=== PATIENT | female | born 1960 | race Caucasian/White ===

== ENCOUNTER 2020-03-09 13:41 | Outpatient (REF) | payer OTHER, SELFPAY ==
--- NOTE | 2020-03-09 14:48 | XR_ITS ---
EXAMINATION: XR FOREARM, RIGHT CLINICAL INFORMATION: Right forearm pain. COMPARISON: None TECHNIQUE: AP and lateral views of the right forearm were obtained. FINDINGS: The radius and ulna are intact. The right elbow is unremarkable. Degenerative joint changes are noted in the right wrist. XR/XR forearm RT 2V IMPRESSION: 1. No acute form abnormality. 2. Degenerative joint changes in the right wrist better described in the dedicated right wrist radiographs from today.
--- NOTE | 2020-03-09 14:48 | XR_ITS ---
EXAMINATION: BILATERAL FOOT X-RAY CLINICAL INFORMATION: Pain COMPARISON: None TECHNIQUE: 3 views each foot FINDINGS: Right: No fracture or dislocation is seen. There is mild hallux valgus deformity at the first MTP joint. There is joint space narrowing, osteophyte formation and subchondral cyst formation and erosion at the first MTP joint. There there are also small cysts or erosive changes at the third and fifth tarsal head at the MTP joints. There may be cystic or erosive changes along the lateral aspect of the DIP and PIP joints of the fifth toe. Joint spaces are otherwise normal. There is soft tissue swelling adjacent to the first MTP joint. Left: No fracture or dislocation is seen. There is mild hallux valgus deformity at the first MTP joint. There is degenerative change with joint space narrowing and osteophyte formation. There is also cystic or erosive change of the first metatarsal head. There are is cystic or erosive changes at the fifth MTP joint and question IP joints of the fifth toe. There is soft tissue swelling adjacent to the MTP joint. There is a plantar calcaneal spur. XR/XR foot LT 2V IMPRESSION: Right: Erosive arthritis at the first MTP joint, third and fifth MTP joints and question IP joints of the fifth toe. Hallux valgus deformity and mild osteoarthritis of the first MTP joint. Left: Erosive arthritis at the first and fifth MTP joints and question fifth IP joints. Hallux valgus deformity and mild osteoarthritis at the first MTP joint. Plantar calcaneal spur. EXAMINATION: Bilateral hand x-ray CLINICAL INFORMATION: Pain COMPARISON: None. TECHNIQUE: 3 views each hand FINDINGS: Right: No fracture or dislocation is seen. There is mild proliferative arthritis at the IP joints and first [facility] with joint space narrowing and osteophyte formation. There is significant cystic change at the radiocarpal joint involving the scaphoid bone and distal radius. There is joint space narrowing of the proximal and distal carpal rows. There is question of some collapse of the proximal carpal row. There is a periarticular osteopenia. There is soft tissue swelling particularly at the wrist and over the metacarpal heads. There is question of erosive change of the dorsal aspect of the second or third metacarpal head seen on the lateral view. Left: There is an old healed fracture of the left radial shaft. No acute fracture or dislocation is seen. There is arthritis at the IP joints with joint space narrowing and osteophyte formation. There is question of cystic or erosive change at the PIP joint of the fifth finger and DIP joint of the second finger. There is significant periarticular soft tissue swelling adjacent to the PIP joint of the second finger. There is a proliferative arthritis at the first [facility] joint with joint space narrowing and osteophyte formation. There are a small cysts in the scaphoid bone and ulnar styloid and triquetrum. There is soft tissue swelling adjacent to the ulnar styloid. IMPRESSION: Right: Proliferative arthritis at the IP joints and first [facility] joint. Marked cystic change at the radiocarpal joint and marked joint space narrowing of the proximal and distal carpal rows with question clinical some collapse of the proximal carpal row suggestive of erosive arthritis. Left: Arthritis at the IP joints. There is question of erosive arthritis at the PIP joint of the fifth finger and DIP joint of the second finger. There is marked periarticular soft tissue swelling adjacent to the PIP joint of the second finger. Mild proliferative arthritis at the first [facility] joint. Small cysts in the carpal bones and soft tissue swelling adjacent to the ulnar styloid. Old left radial shaft fracture.
--- NOTE | 2020-03-09 14:48 | XR_ITS ---
EXAMINATION: BILATERAL FOOT X-RAY CLINICAL INFORMATION: Pain COMPARISON: None TECHNIQUE: 3 views each foot FINDINGS: Right: No fracture or dislocation is seen. There is mild hallux valgus deformity at the first MTP joint. There is joint space narrowing, osteophyte formation and subchondral cyst formation and erosion at the first MTP joint. There there are also small cysts or erosive changes at the third and fifth tarsal head at the MTP joints. There may be cystic or erosive changes along the lateral aspect of the DIP and PIP joints of the fifth toe. Joint spaces are otherwise normal. There is soft tissue swelling adjacent to the first MTP joint. Left: No fracture or dislocation is seen. There is mild hallux valgus deformity at the first MTP joint. There is degenerative change with joint space narrowing and osteophyte formation. There is also cystic or erosive change of the first metatarsal head. There are is cystic or erosive changes at the fifth MTP joint and question IP joints of the fifth toe. There is soft tissue swelling adjacent to the MTP joint. There is a plantar calcaneal spur. XR/XR hand wrist RT IMPRESSION: Right: Erosive arthritis at the first MTP joint, third and fifth MTP joints and question IP joints of the fifth toe. Hallux valgus deformity and mild osteoarthritis of the first MTP joint. Left: Erosive arthritis at the first and fifth MTP joints and question fifth IP joints. Hallux valgus deformity and mild osteoarthritis at the first MTP joint. Plantar calcaneal spur. EXAMINATION: Bilateral hand x-ray CLINICAL INFORMATION: Pain COMPARISON: None. TECHNIQUE: 3 views each hand FINDINGS: Right: No fracture or dislocation is seen. There is mild proliferative arthritis at the IP joints and first [facility] with joint space narrowing and osteophyte formation. There is significant cystic change at the radiocarpal joint involving the scaphoid bone and distal radius. There is joint space narrowing of the proximal and distal carpal rows. There is question of some collapse of the proximal carpal row. There is a periarticular osteopenia. There is soft tissue swelling particularly at the wrist and over the metacarpal heads. There is question of erosive change of the dorsal aspect of the second or third metacarpal head seen on the lateral view. Left: There is an old healed fracture of the left radial shaft. No acute fracture or dislocation is seen. There is arthritis at the IP joints with joint space narrowing and osteophyte formation. There is question of cystic or erosive change at the PIP joint of the fifth finger and DIP joint of the second finger. There is significant periarticular soft tissue swelling adjacent to the PIP joint of the second finger. There is a proliferative arthritis at the first [facility] joint with joint space narrowing and osteophyte formation. There are a small cysts in the scaphoid bone and ulnar styloid and triquetrum. There is soft tissue swelling adjacent to the ulnar styloid. IMPRESSION: Right: Proliferative arthritis at the IP joints and first [facility] joint. Marked cystic change at the radiocarpal joint and marked joint space narrowing of the proximal and distal carpal rows with question clinical some collapse of the proximal carpal row suggestive of erosive arthritis. Left: Arthritis at the IP joints. There is question of erosive arthritis at the PIP joint of the fifth finger and DIP joint of the second finger. There is marked periarticular soft tissue swelling adjacent to the PIP joint of the second finger. Mild proliferative arthritis at the first [facility] joint. Small cysts in the carpal bones and soft tissue swelling adjacent to the ulnar styloid. Old left radial shaft fracture.
--- NOTE | 2020-03-09 14:48 | XR_ITS ---
EXAMINATION: BILATERAL FOOT X-RAY CLINICAL INFORMATION: Pain COMPARISON: None TECHNIQUE: 3 views each foot FINDINGS: Right: No fracture or dislocation is seen. There is mild hallux valgus deformity at the first MTP joint. There is joint space narrowing, osteophyte formation and subchondral cyst formation and erosion at the first MTP joint. There there are also small cysts or erosive changes at the third and fifth tarsal head at the MTP joints. There may be cystic or erosive changes along the lateral aspect of the DIP and PIP joints of the fifth toe. Joint spaces are otherwise normal. There is soft tissue swelling adjacent to the first MTP joint. Left: No fracture or dislocation is seen. There is mild hallux valgus deformity at the first MTP joint. There is degenerative change with joint space narrowing and osteophyte formation. There is also cystic or erosive change of the first metatarsal head. There are is cystic or erosive changes at the fifth MTP joint and question IP joints of the fifth toe. There is soft tissue swelling adjacent to the MTP joint. There is a plantar calcaneal spur. XR/XR foot RT 2V IMPRESSION: Right: Erosive arthritis at the first MTP joint, third and fifth MTP joints and question IP joints of the fifth toe. Hallux valgus deformity and mild osteoarthritis of the first MTP joint. Left: Erosive arthritis at the first and fifth MTP joints and question fifth IP joints. Hallux valgus deformity and mild osteoarthritis at the first MTP joint. Plantar calcaneal spur. EXAMINATION: Bilateral hand x-ray CLINICAL INFORMATION: Pain COMPARISON: None. TECHNIQUE: 3 views each hand FINDINGS: Right: No fracture or dislocation is seen. There is mild proliferative arthritis at the IP joints and first [facility] with joint space narrowing and osteophyte formation. There is significant cystic change at the radiocarpal joint involving the scaphoid bone and distal radius. There is joint space narrowing of the proximal and distal carpal rows. There is question of some collapse of the proximal carpal row. There is a periarticular osteopenia. There is soft tissue swelling particularly at the wrist and over the metacarpal heads. There is question of erosive change of the dorsal aspect of the second or third metacarpal head seen on the lateral view. Left: There is an old healed fracture of the left radial shaft. No acute fracture or dislocation is seen. There is arthritis at the IP joints with joint space narrowing and osteophyte formation. There is question of cystic or erosive change at the PIP joint of the fifth finger and DIP joint of the second finger. There is significant periarticular soft tissue swelling adjacent to the PIP joint of the second finger. There is a proliferative arthritis at the first [facility] joint with joint space narrowing and osteophyte formation. There are a small cysts in the scaphoid bone and ulnar styloid and triquetrum. There is soft tissue swelling adjacent to the ulnar styloid. IMPRESSION: Right: Proliferative arthritis at the IP joints and first [facility] joint. Marked cystic change at the radiocarpal joint and marked joint space narrowing of the proximal and distal carpal rows with question clinical some collapse of the proximal carpal row suggestive of erosive arthritis. Left: Arthritis at the IP joints. There is question of erosive arthritis at the PIP joint of the fifth finger and DIP joint of the second finger. There is marked periarticular soft tissue swelling adjacent to the PIP joint of the second finger. Mild proliferative arthritis at the first [facility] joint. Small cysts in the carpal bones and soft tissue swelling adjacent to the ulnar styloid. Old left radial shaft fracture.
--- NOTE | 2020-03-09 14:48 | XR_ITS ---
EXAMINATION: BILATERAL FOOT X-RAY CLINICAL INFORMATION: Pain COMPARISON: None TECHNIQUE: 3 views each foot FINDINGS: Right: No fracture or dislocation is seen. There is mild hallux valgus deformity at the first MTP joint. There is joint space narrowing, osteophyte formation and subchondral cyst formation and erosion at the first MTP joint. There there are also small cysts or erosive changes at the third and fifth tarsal head at the MTP joints. There may be cystic or erosive changes along the lateral aspect of the DIP and PIP joints of the fifth toe. Joint spaces are otherwise normal. There is soft tissue swelling adjacent to the first MTP joint. Left: No fracture or dislocation is seen. There is mild hallux valgus deformity at the first MTP joint. There is degenerative change with joint space narrowing and osteophyte formation. There is also cystic or erosive change of the first metatarsal head. There are is cystic or erosive changes at the fifth MTP joint and question IP joints of the fifth toe. There is soft tissue swelling adjacent to the MTP joint. There is a plantar calcaneal spur. XR/XR hand wrist LT IMPRESSION: Right: Erosive arthritis at the first MTP joint, third and fifth MTP joints and question IP joints of the fifth toe. Hallux valgus deformity and mild osteoarthritis of the first MTP joint. Left: Erosive arthritis at the first and fifth MTP joints and question fifth IP joints. Hallux valgus deformity and mild osteoarthritis at the first MTP joint. Plantar calcaneal spur. EXAMINATION: Bilateral hand x-ray CLINICAL INFORMATION: Pain COMPARISON: None. TECHNIQUE: 3 views each hand FINDINGS: Right: No fracture or dislocation is seen. There is mild proliferative arthritis at the IP joints and first [facility] with joint space narrowing and osteophyte formation. There is significant cystic change at the radiocarpal joint involving the scaphoid bone and distal radius. There is joint space narrowing of the proximal and distal carpal rows. There is question of some collapse of the proximal carpal row. There is a periarticular osteopenia. There is soft tissue swelling particularly at the wrist and over the metacarpal heads. There is question of erosive change of the dorsal aspect of the second or third metacarpal head seen on the lateral view. Left: There is an old healed fracture of the left radial shaft. No acute fracture or dislocation is seen. There is arthritis at the IP joints with joint space narrowing and osteophyte formation. There is question of cystic or erosive change at the PIP joint of the fifth finger and DIP joint of the second finger. There is significant periarticular soft tissue swelling adjacent to the PIP joint of the second finger. There is a proliferative arthritis at the first [facility] joint with joint space narrowing and osteophyte formation. There are a small cysts in the scaphoid bone and ulnar styloid and triquetrum. There is soft tissue swelling adjacent to the ulnar styloid. IMPRESSION: Right: Proliferative arthritis at the IP joints and first [facility] joint. Marked cystic change at the radiocarpal joint and marked joint space narrowing of the proximal and distal carpal rows with question clinical some collapse of the proximal carpal row suggestive of erosive arthritis. Left: Arthritis at the IP joints. There is question of erosive arthritis at the PIP joint of the fifth finger and DIP joint of the second finger. There is marked periarticular soft tissue swelling adjacent to the PIP joint of the second finger. Mild proliferative arthritis at the first [facility] joint. Small cysts in the carpal bones and soft tissue swelling adjacent to the ulnar styloid. Old left radial shaft fracture.
[2020-03-09 15:08] LABS: MANUAL DIFF FLAG NO
[2020-03-09 15:11] LABS: Basophils Percent Auto 0.5 % (0-2); Eosinophils Absolute Auto 0.2 X10*3/uL (0.0-0.4); Eosinophils Percent Auto 2.8 % (0-4); Hematocrit 36.9 % (37-47); Hemoglobin 11.9 g/dl (12.0-16.0); Imm Gran Abs Auto 0.03 X10*3/uL (0.00-0.03); Imm Gran Pct Auto 0.4 % (0.0-0.4); Lymphocytes Percent Auto 25.5 % (20-40); Mean Corpuscular HGB Conc 32.2 g/dl (31.0-35.0); Mean Corpuscular Hemoglobin 31.6 pg (27.0-33.0); Mean Corpuscular Volume 97.9 fL (80-98); Mean Platelet Volume 8.9 fL (9.4-12.3); Monocytes Absolute Auto 0.7 X10*3/uL (0.1-1.2); Monocytes Percent Auto 8.8 % (2-11); Neutrophils Absolute Auto 4.9 X10*3/uL (2.0-8.3); Platelet Count 358 X10*3/uL (160-400); Red Blood Count 3.77 X10*6/uL (4.20-5.50); Red Cell Distribution Width 12.2 % (11.0-16.0)
[2020-03-09 15:36] LABS: Alanine Aminotransferase 15 U/L (0-31); Albumin Level 4.2 g/dL (3.5-5.0); Alkaline Phosphatase 115 U/L (39-117); Anion Gap 12 (12-20); Aspartate Amino Transferase 18 U/L (5-31); Bilirubin Total 0.3 mg/dL (0.0-1.0); Blood Urea Nitrogen 22 mg/dL (9-16); C Reactive Protein 2.77 mg/dL (< or = 0.50); Carbon Dioxide 24 mmol/L (22-29); Chloride 103 mmol/L (96-108); Estimated Glomerular Filt Rate > 60; Glucose Random 96 mg/dL (60-115); Potassium 4.2 mmol/l (3.3-5.1); Rheumatoid Factor < 15.0 IU/mL (<15.0); Sodium 135 mmol/L (135-145); Total Protein 7.1 g/dL (6.5-8.0)
[2020-03-09 15:53] LABS: Erythrocyte Sedimentation Rate 14 MM/HR (0-20)
[2020-03-10 05:06] LABS: ~HepC Num1 0.08 S/CO (0.00-0.79); ~Hepatitis C Antibody Nonreactive (Nonreactive)
[2020-03-10 05:14] LABS: HBc Num1 0.05 S/CO (0.00-0.79); HBsAGNum1 0.24 S/CO (0.00-0.99); Hepatitis B Core Antibody Nonreactive (Nonreactive); Hepatitis B Surface Antigen Negative (Negative)
[2020-03-10 05:49] LABS: HBS Num1 11.51 mIU/mL (0-7.99); HBS Num2 11.39 mIU/mL (0-7.99); HBS Num3 11.47 mIU/mL (0-7.99)
[2020-03-10 05:50] LABS: ~Hepatitis B Surface Antibody Grayzone (Nonreactive)
[2020-03-10 12:07] LABS: Antibody to SS-A Antigen 5.2 POS AI (<1.0 NEG); Antibody to SS-B Antigen <1.0 NEG AI (<1.0 NEG)
[2020-03-10 14:31] LABS: Anti Nuclear Antibody Screen NEGATIVE (NEGATIVE)
[2020-03-10 16:01] LABS: Cyclic Citrullinated Peptide 171 UNITS
[2020-03-11 03:39] LABS: Hepatitis A Antibody IgM 0.16 Index (0-0.79); ~Hepatitis A Antibody IgM Nonreactive (Nonreactive)
[2020-03-12 20:02] LABS: TS Negative Control Passed; TS Panel A 0; TS Panel B 0; TS Positive Control Passed; TSpotTB Negative (SeeBelow)
[2020-03-13 10:12] LABS: Vitamin D 25-OH, D2 6 ng/mL; Vitamin D 25-OH, D3 31 ng/mL; Vitamin D 25-OH, Total 37 ng/mL (30-100)
== END 2020-03-09 13:42 | disposition home or self-care (01) ==
LOC: HO.LAB 13:41
PROVIDERS: PCP Internal Medicine; Referring Provider Internal Medicine; Visit Provider Student in an Organized Health Care Education/Training Program
DX: M25.50 Pain in unspecified joint (principal)
CPT/HCPCS: 36415; 73090; 73110; 73130; 73620; 80053; 82306; 85025; 85652; 86038; 86039; 86140; 86200; 86235; 86431; 86481; 86704; 86706; 86709; 86803; 87340

== ENCOUNTER → 2020-04-01 15:29 | Outpatient (BNVA) | payer OTHER, SELFPAY | PROVIDERS: PCP Internal Medicine; Referring Provider Internal Medicine; Visit Provider Student in an Organized Health Care Education/Training Program | DX: Z76.89 Persons encountering health services in other specified circumstances (principal) ==

== ENCOUNTER → 2020-08-03 13:52 | Outpatient (BNVA) | payer OTHER, SELFPAY | PROVIDERS: Visit Provider Student in an Organized Health Care Education/Training Program ==

== ENCOUNTER → 2020-10-05 14:57 | Outpatient (BNVA) | payer OTHER, SELFPAY | PROVIDERS: Visit Provider Student in an Organized Health Care Education/Training Program ==

== ENCOUNTER → 2020-12-19 07:55 | Outpatient (BNVA) | payer OTHER, SELFPAY | PROVIDERS: PCP Internal Medicine; Visit Provider Nurse Practitioner Family ==

== ENCOUNTER → 2021-05-04 11:20 | Outpatient (BNVA) | payer OTHER, SELFPAY | PROVIDERS: PCP Internal Medicine; Visit Provider Nurse Practitioner Family ==

== ENCOUNTER → 2021-08-22 11:24 | Outpatient (BNVA) | payer OTHER, SELFPAY | PROVIDERS: PCP Internal Medicine; Visit Provider Nurse Practitioner Family | DX: Z13.89 Encounter for screening for other disorder (principal) ==

== ENCOUNTER → 2022-07-05 07:29 | Outpatient (BNVA) | payer OTHER, SELFPAY | PROVIDERS: PCP Internal Medicine; Visit Provider Nurse Practitioner Family | DX: Z13.89 Encounter for screening for other disorder (principal) ==

== ENCOUNTER 2022-07-05 08:27 | Outpatient (REF) | payer OTHER, SELFPAY ==
[2022-07-05 10:55] LABS: MANUAL DIFF FLAG NO
[2022-07-05 11:02] LABS: Basophils Percent Auto 0.4 % (0-2); Eosinophils Absolute Auto 0.2 X10*3/uL (0.0-0.4); Eosinophils Percent Auto 2.2 % (0-4); Hematocrit 40.9 % (37.0-47.0); Hemoglobin 13.2 g/dl (12.0-16.0); Imm Gran Abs Auto 0.04 X10*3/uL (0.00-0.03); Imm Gran Pct Auto 0.4 % (0.0-0.4); Lymphocytes Absolute Auto 1.2 X10*3/uL (1.2-4.9); Lymphocytes Percent Auto 12.3 % (20-40); Mean Corpuscular HGB Conc 32.3 g/dl (31.0-35.0); Mean Platelet Volume 9.3 fL (9.4-12.3); Monocytes Absolute Auto 0.9 X10*3/uL (0.1-1.2); Monocytes Percent Auto 9.1 % (2-11); Neutrophils Absolute Auto 7.5 x10*3/uL (2.0-8.3); Neutrophils Percent Auto 75.6 % (45-73); Platelet Count 304 X10*3/uL (160-400); Red Blood Count 4.26 X10*6/uL (4.20-5.50); Red Cell Distribution Width 12.5 % (11.0-16.0); White Blood Count 9.9 X10*3/uL (4.8-10.8)
[2022-07-05 11:27] LABS: Alanine Aminotransferase 14 U/L (0-31); Albumin Level 4.3 g/dL (3.5-5.0); Alkaline Phosphatase 92 U/L (39-117); Anion Gap 16 (12-20); Aspartate Amino Transferase 18 U/L (5-31); Bilirubin Total 0.9 mg/dL (0.0-1.0); Blood Urea Nitrogen 12 mg/dL (9-16); C Reactive Protein 1.71 mg/dL (< or = 0.50); Calcium 9.4 mg/dL (8.4-10.2); Carbon Dioxide 22 mmol/L (22-29); Chloride 104 mmol/L (96-108); Estimated Glomerular Filt Rate > 60; Glucose Random 92 mg/dL (60-115); Sodium 138 mmol/L (135-145)
[2022-07-05 11:45] LABS: Erythrocyte Sedimentation Rate 8 MM/HR (0-20)
== END 2022-07-05 08:28 | disposition home or self-care (01) ==
LOC: HO.10HDL 08:27
PROVIDERS: Visit Provider Nurse Practitioner Family
DX: M05.9 Rheumatoid arthritis with rheumatoid factor, unspecified (principal)
CPT/HCPCS: 36415; 80053; 85025; 85652; 86140

== ENCOUNTER → 2022-08-14 07:33 | Outpatient (BNVA) | payer OTHER, SELFPAY | PROVIDERS: PCP Internal Medicine; Visit Provider Nurse Practitioner Family | DX: M05.9 Rheumatoid arthritis with rheumatoid factor, unspecified (principal) | CPT/HCPCS: 99212 ==

== ENCOUNTER 2022-11-26 14:34 | Outpatient (AMB) | payer OTHER, SELFPAY ==
[2022-11-26 14:39] VITALS: BP 142/88; PULSE 78; TEMP 36.8; O2SAT 98; BMI 22.6
--- NOTE | 2022-11-26 14:39 | A.OFFVIS_ITS ---
Intake Vital Signs 11/26/22 14:39 Height 5 ft Weight 115 lb 15.41 oz BMI 22.6 BP 142/88 H Blood Pressure Location Lt brachial Position Sitting Pulse 78 Pulse Source Pulse Oximeter Temp 98.2 F Temp Source Skin Pulse Oximetry (%) 98 Intake Visit Reasons: rheumatoid arthritis Intake Note: * Pt seen today for RA follow up. * Experienced injection site reaction with Actemra. Resistance Welder Required: No Accompanied by: Self / Same As Patient Allergies tocilizumab [From Actemra] Allergy (Intermediate, Verified 11/26/22 14:40) Rash sarilumab [From Kevzara] Allergy (Verified 11/26/22 14:40) rash HPI HPI Comments History of Present Illness Details The patient caledl us about 2 weeks ago with a reaction to the Actemra injections. She was getting small amounts of redness and swelling at injection site but the most recent 1 caused a swelling that measured 5 x 6 in. It was painful as well. She also developed some itchiness on the scalp in underneath the axilla regions. We told her to stop the Actemra. It has been doing well with her joints as they do not seem to be hurting. Unfortunately she has been on multiple other medications in the past for her RA that either did not help or were associated with side effects. The disease was diagnosed in 2010. She had trials of treatment with methotrexate, hydroxychloroquine, sulfasalazine, Enbrel, Orencia and Humira. Methotrexate seemed to cause nausea. Hydroxychloroquine and the other drugs were not effective. She did get treated with Xeljanz for about 6 months but that seemed to cause headache and nausea so it was stopped. She was then switched to Kevzara for a while that was helpful but gave her unacceptable injection reactions. We tried again the Actemra most recently which also was effective but associated with progressively more severe injection site reactions. She has some prednisone available at home but has not needed itt yet because the last Actemra injection was only 3 weeks ago. [facility] Medical History Atrial tachycardia Hypertension Syncope Surgical History H/O arthroscopic knee surgery H/O dilation and curettage Family History Father Rectal cancer HTN (hypertension) Mother HTN (hypertension) Social History Alcohol intake: current Patient Tobacco Use Status: Never used Tobacco e-Cigarette/Vaping Use: Never Used Review of Systems Const Details: Negative for appetite change, weight change, fever, chills, malaise and fatigue Eyes Details: Negative for vision change, dry eyes,headaches and dizziness ENT Details: Negative for hearing change, tinnitus, oral ulcer, nose bleeds and oral dryness. Card Details: Negative chest pain, edema and syncope Resp Details: Negative for SOB, cough and wheezing GI Details: Negative indigestion/heartburn, nausea, abdominal pain, bowel changes, diarrhea, constipation and bloody stool. Skin/Breast Details: Negative for itching, rash, hives, Raynaud's symptoms, sun sensitivity, and skin cancer Foster/Lymph Details: Negative for excessive bruising or bleeding. Physical Exam Vital Signs: Last Vital Signs Temp 98.2 F 11/26/22 14:39 Pulse 78 11/26/22 14:39 BP 142/88 H 11/26/22 14:39 Pulse Ox 98 11/26/22 14:39 BMI result Body Mass Index 22.6 APPEARANCE: Patient in no acute distress EYES no redness, pupils equal and reactive to light, eyelids normal EXTREMITIES:? No edema, no calf tenderness, normal peripheral pulses. NEURO:? Oriented and alert x3.? No focal weakness.? Gait normal. SKIN:? No inflammatory or neoplastic lesions.? Normal color and turgor. She has a picture on her phone of swelling and redness over the left thigh where she had the injection site reaction. JOINT EXAM:? Cervical Spine: Full range of motion without pain; no tenderness. Thoracic Spine:? No tenderness on palpation. Lumbar Spine:? Alignment normal.? Full range of motion without pain, no tenderness. Hands: LEFT:? Mild bony enlargement without tenderness at the base of the thumb. There is soft tissue swelling without tenderness of the 2nd and 3rd MCP joints. There is no flexor tendon triggering, thenar atrophy or sensory loss. She has minimal nontender bony enlargement at the 2nd through 5th PIP joints. ? RIGHT:? Mild bony enlargement and slight tenderness at the base of the thumb. There is soft tissue swelling without tenderness at the 1st 3 MCP joints. Wrists: LEFT: ? Flexion and extension limited at about 45 degrees where she has mild pain. There is questionable soft tissue thickening at the wrist and mild tenderness.? No erythema or increased warmth.? RIGHT:? Slight discomfort with flexion extension at 60 degrees. There is minimal tenderness but no swelling.No erythema or increased warmth. Elbows: Normal pain-free range of motion without tenderness, swelling, increased warmth or erythema. Shoulders: Full range of motion without pain. No tenderness, weakness, swelling, increased warmth or erythema. Hips: Full range of motion without pain. Hip bursa:? No tenderness. Knees: Normal pain-free range of motion without tenderness, swelling, increased warmth or erythema.? There is no effusion or crepitation Ankles:? Normal pain-free range of motion without tenderness, swelling, incr eased warmth or erythema. Feet: Right: There is 1st MTP bony enlargement and hallux valgus deformity. There is hammertoe deformities of the 2nd and 3rd toes with a dorsal callus on the 2nd toe. The 2nd toe over rides the 3rd toe. There is no tenderness in the other MTP joints. There is some bony prominence up on the dorsum of the foot. This is not tender today. Left: 1st MTP bony enlargement and hallux valgus deformity as on the right. There is early hammertoe deformity at the 2nd toe. Elsewhere there is no tenderness or swelling except for some dorsal bony enlargement in the instep. ? Results Reviewed Results Reviewed: Laboratory Tests 07/05/22 07/05/22 08:30 08:30 WBC 9.9 Hgb 13.2 Creatinine 0.66 AST 18 ALT 14 C-Reactive Protein 1.71 H November 22 labs from [facility] reference lab: Hematocrit 42, hemoglobin 13.1, white count 5.5, ALT 24, AST 21, ESR less than 2, CRP less than 0.3 Assessment & Plan Assessment & Plan (1) Long-term use of immunosuppressant medication: Code(s): Z79.60 - retirement (current) use of unspecified immunomodulators and immunosuppressants (2) Seropositive rheumatoid arthritis: Comment: dx 2010. plaquenil, mtx, Enbrel, sulfasalazine, Humira not effective. Xeljanz 06/2019 through 07/2020 headache and nausea Kevzara ordered but denied by insurance company 07/2020 Orencia 08/2020- 09/2020 symptoms improved at first, then returned-also on prednisone weaned off Actemra 09/2020- 04/2021- tremor and feeling unwell, likely due to other reasons, but Actemra to see response. Kevzara 04/2021-05/2021-injection site reaction Actemra- 06/2021- 08/2021- injection site reaction, redness and warmth at the injection site. Code(s): M05.9 - Rheumatoid arthritis with rheumatoid factor, unspecified Plan Rheumatoid arthritis with again an unacceptable injection site reaction. The control of synovitis was actually pretty good with the Actemra so it is unfortunate that we cannot use it. I did review her records of previous trials with medications. It seems like she does get injection site reactions for relatively frequently so we may try to stay away from that type of modality. I will try to see if we get approval for the use of baricitinib 2 mg daily. She had trouble with the Xeljanz mostly with nausea so maybe the baricitinib is not going to give her that. We will have to pursue this with her insurance company. We will get back to her with the decision on prior authorization. In the meantime she does have the prednisone at home if needed. Review of her record and today's exam took 35 minutes. I gave her some written information on the baricitinib to review. We will aim for follow-up at about 2 months, hopefully by then she will be on the new medication and doing well. Coding Level of Care Code Est Pt Level 4 (62468) Diagnoses Long-term use of immunosuppressant medication Z79.60 Seropositive rheumatoid arthritis M05.9
== END 2022-11-26 16:16 | disposition home or self-care (01) ==
PROVIDERS: PCP Internal Medicine; Visit Provider Internal Medicine Rheumatology
DX: M05.89 Other rheumatoid arthritis with rheumatoid factor of multiple sites (principal); Z79.60 Long term (current) use of unspecified immunomodulators and immunosuppressants
CPT/HCPCS: 99214

== ENCOUNTER → 2022-11-26 14:34 | Outpatient (BNVA) | payer OTHER, SELFPAY | PROVIDERS: Visit Provider Internal Medicine Rheumatology ==

== ENCOUNTER 2023-03-25 08:40 | Outpatient (AMB) | payer OTHER, SELFPAY ==
--- NOTE | 2023-03-25 08:42 | A.OFFVIS_ITS ---
Intake Vital Signs 03/25/23 08:43 Height 5 ft Weight 118 lb 6.212 oz BMI 23.1 BP 122/78 Blood Pressure Location Rt brachial Position Sitting Pulse 90 Pulse Source Pulse Oximeter Temp 97.2 F Temp Source Skin Pulse Oximetry (%) 98 Oxygen Delivery Method Room Air Intake Visit Reasons: 3 months Intake Note: Patient presents today to follow up on RA and new medication, Olumiant. 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 She currently is taking the baricitinib 2 mg daily. She says it has helped somewhat in allowing her to avoid severe pain but she still has some pain with use of the hands - the MCP's and wrists. She notes there is swelling in the wrists and MCPs. This is worse with more physical activity. The knees occasionally are painful with stairs. She said she felt better on the Kevzara and Actemra but they gave her skin rashes and other side effects. She wonders if she should retry Orencia. The chart notes indicate she was only on it for a month or 2. She has not needed any prednisone recently however. There do not appear to be any side effects related to the baricitinib presently. [facility] Medical History Atrial tachycardia Hypertension Syncope Surgical History H/O dilation and curettage H/O arthroscopic knee surgery Family History Father Rectal cancer HTN (hypertension) Mother HTN (hypertension) Social History Alcohol intake: current Patient Tobacco Use Status: Never used Tobacco e-Cigarette/Vaping Use: Never Used Review of Systems Const Details: Negative for appetite change, weight change, fever, chills, malaise and fatigue Eyes Details: Negative for vision change, dry eyes,headaches and dizziness ENT Details: Negative for hearing change, tinnitus, oral ulcer, nose bleeds and oral dryness. Card Details: Negative chest pain, edema and syncope Resp Details: Negative for SOB, cough and wheezing GI Details: Negative indigestion/heartburn, nausea, abdominal pain, bowel changes, diarrhea, constipation and bloody stool. Skin/Breast Details: Negative for itching, rash, hives, Raynaud's symptoms, sun sensitivity, and skin cancer Foster/Lymph Details: Negative for excessive bruising or bleeding. Physical Exam Vital Signs: Last Vital Signs Temp 97.2 F 03/25/23 08:43 Pulse 90 03/25/23 08:43 BP 122/78 03/25/23 08:43 Pulse Ox 98 03/25/23 08:43 Oxygen Delivery Method Room Air 03/25/23 08:43 BMI result Body Mass Index 23.1 APPEARANCE: Patient in no acute distress EYES no redness, pupils equal and reactive to light, eyelids normal EXTREMITIES: No edema, no calf tenderness, normal peripheral pulses. JOINT EXAM: ?? Cervical Spine: Full range of motion without pain; no tenderness. Thoracic Spine:? No tenderness on palpation. Lumbar Spine:? Alignment normal.? Full range of motion without pain, no tenderness. Hands: LEFT:? Mild bony enlargement without tenderness at the base of the thumb. There is soft tissue swelling with slight tenderness of the 2nd and 3rd MCP joints. There is no flexor tendon triggering, thenar atrophy or sensory loss. She has minimal nontender bony enlargement at the 2nd through 5th PIP joints. ? RIGHT:? Mild bony enlargement and slight tenderness at the base of the thumb. There is soft tissue swelling without tenderness at the 1st 3 MCP joints. Wrists: LEFT: ? Flexion and extension limited at about 45 degrees where she has mild pain. There is questionable soft tissue thickening at the wrist and mild tenderness.? No erythema or increased warmth.? RIGHT:? Slight discomfort with flexion extension at 60 degrees. There is minimal tenderness but no swelling.No erythema or increased warmth. Elbows: Normal pain-free range of motion without tenderness, swelling, increased warmth or erythema. Shoulders: Full range of motion without pain. No tenderness, weakness, swelling, increased warmth or erythema. Hips: Full range of motion without pain. Hip bursa:? No tenderness. Knees: Right: Normal pain-free range of motion with no crepitance evident.. There is some minimal effusion evident but no redness or warmth. Minimal joint margin tenderness on the medial aspect but no popliteal swelling or tenderness. Left: Normal pain-free range of motion without tenderness, swelling, increased warmth or erythema.? There is no effusion or crepitation Ankles:? Normal pain-free range of motion without tenderness, swelling, increased warmth or erythema. Feet: Right: There is 1st MTP bony enlargement and hallux valgus deformity. There is hammertoe deformities of the 2nd and 3rd toes with a dorsal callus on the 2nd and 3rd toes.. The 2nd toe over rides the 3rd toe. There is no tenderness in the other MTP joints. There is some bony prominence up on the dorsum of the foot. This is not tender today. Left: 1st MTP bony enlargement and hallux valgus deformity as on the right. There is early hammertoe deformity at the 2nd toe. Elsewhere there is no tenderness or swelling except for some dorsal bony enlargement in the instep. ? Results Reviewed Results Reviewed: Laboratory Tests 07/05/22 08:30 WBC 9.9 Hgb 13.2 ESR 8 Creatinine 0.66 AST 18 ALT 14 C-Reactive Protein 1.[address] [place] [address] XRay Report Signed Patient: Kae Campbell MR#: [id number] : 1960 Acct:[id number] Age/Sex: 59 / F ADM Date: 03/09/20 Ordering Physician: Haylee Magallanes MD Date of Service: 03/09/20 Procedure(s): XR hand wrist RT Accession Number(s): [id number] cc: Haylee Magallanes MD~ EXAMINATION: BILATERAL FOOT X-RAY CLINICAL INFORMATION: Pain COMPARISON: None TECHNIQUE: 3 views each foot FINDINGS: Right: No fracture or dislocation is seen. There is mild hallux valgus deformity at the first MTP joint. There is joint space narrowing, osteophyte formation and subchondral cyst formation and erosion at the first MTP joint. There there are also small cysts or erosive changes at the third and fifth tarsal head at the MTP joints. There may be cystic or erosive changes along the lateral aspect of the DIP and PIP joints of the fifth toe. Joint spaces are otherwise normal. There is soft tissue swelling adjacent to the first MTP joint. Left: No fracture or dislocation is seen. There is mild hallux valgus deformity at the first MTP joint. There is degenerative change with joint space narrowing and osteophyte formation. There is also cystic or erosive change of the first metatarsal head. There are is cystic or erosive changes at the fifth MTP joint and question IP joints of the fifth toe. There is soft tissue swelling adjacent to the MTP joint. There is a plantar calcaneal spur. XR/XR hand wrist RT IMPRESSION: Right: Erosive arthritis at the first MTP joint, third and fifth MTP joints and question IP joints of the fifth toe. Hallux valgus deformity and mild osteoarthritis of the first MTP joint. Left: Erosive arthritis at the first and fifth MTP joints and question fifth IP joints. Hallux valgus deformity and mild osteoarthritis at the first MTP joint. Plantar calcaneal spur. EXAMINATION: Bilateral hand x-ray CLINICAL INFORMATION: Pain COMPARISON: None. TECHNIQUE: 3 views each hand FINDINGS: Right: No fracture or dislocation is seen. There is mild proliferative arthritis at the IP joints and first PRISON with joint space narrowing and osteophyte formation. There is significant cystic change at the radiocarpal joint involving the scaphoid bone and distal radius. There is joint space narrowing of the proximal and distal carpal rows. There is question of some collapse of the proximal carpal row. There is a periarticular osteopenia. There is soft tissue swelling particularly at the wrist and over the metacarpal heads. There is question of erosive change of the dorsal aspect of the second or third metacarpal head seen on the lateral view. Left: There is an old healed fracture of the left radial shaft. No acute fracture or dislocation is seen. There is arthritis at the IP joints with joint space narrowing and osteophyte formation. There is question of cystic or erosive change at the PIP joint of the fifth finger and DIP joint of the second finger. There is significant periarticular soft tissue swelling adjacent to the PIP joint of the second finger. There is a proliferative arthritis at the first PRISON joint with joint space narrowing and osteophyte formation. There are a small cysts in the scaphoid bone and ulnar styloid and triquetrum. There is soft tissue swelling adjacent to the ulnar styloid. IMPRESSION: Right: Proliferative arthritis at the IP joints and first PRISON joint. Marked cystic change at the radiocarpal joint and marked joint space narrowing of the proximal and distal carpal rows with question clinical some collapse of the proximal carpal row suggestive of erosive arthritis. Left: Arthritis at the IP joints. There is question of erosive arthritis at the PIP joint of the fifth finger and DIP joint of the second finger. There is marked periarticular soft tissue swelling adjacent to the PIP joint of the second finger. Mild proliferative arthritis at the first PRISON joint. Small cysts in the carpal bones and soft tissue swelling adjacent to the ulnar styloid. Old left radial shaft fracture. Assessment & Plan Assessment & Plan (1) Seropositive rheumatoid arthritis: Comment: dx 2010. plaquenil, mtx, Enbrel, sulfasalazine, Humira not effective. Xeljanz 06/2019 through 07/2020 headache and nausea Kevzara ordered but denied by insurance company 07/2020 Orencia 08/2020- 09/2020 symptoms improved at first, then returned-also on prednisone weaned off Actemra 09/2020- 04/2021- tremor and feeling unwell, likely due to other reasons, but Actemra to see response. Kevzara 04/2021-05/2021-injection site reaction Actemra- 06/2021- 08/2021- injection site reaction, redness and warmth at the injection site. 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 Radiographs in the past have documented erosive disease so I do not think we can expect full relief of her symptoms with just intense anti-inflammatory measures. Whether not she would do better with the return to Orencia or trying another ANNY inhibitor remains an open question. I am going to repeat her x-rays to see if there has been much progression of those changes. We will recheck lab work for monitoring her ANNY inhibitor use as well as assessing her inflammatory markers. I will get back to her with the results of the review the x-rays and lab work. We may consider trying Rinvoq or Orencia in the future. A follow up at 2 months is recommended, Orders: Orders Erythrocyte Sedimentation Rate 03/23/23 M05.9 - Rheumatoid arthritis with rheumatoid factor, unspecified C Reactive Protein 03/23/23 M05.9 - Rheumatoid arthritis with rheumatoid factor, unspecified Complete Blood Count Auto Diff 03/23/23 M05.9 - Rheumatoid arthritis with rheumatoid factor, unspecified, Z79.899 - Other terminal press operator (current) drug therapy XR hand RT min 3V Today M05.9 - Rheumatoid arthritis with rheumatoid factor, unspecified XR hand LT min 3V Today M05.9 - Rheumatoid arthritis with rheumatoid factor, unspecified Comprehensive Met. Panel Today Z79.60 - terminal press operator (current) use of unspecified immunomodulators and immunosuppressants Coding Level of Care Code Est Pt Level 3 (18516) Diagnoses Seropositive rheumatoid arthritis M05.9 Long-term use of immunosuppressant medication Z79.60
[2023-03-25 08:43] VITALS: BP 122/78; PULSE 90; TEMP 36.2; O2SAT 98; BMI 23.1
== END 2023-03-25 09:20 | disposition home or self-care (01) ==
PROVIDERS: PCP Internal Medicine; Visit Provider Internal Medicine Rheumatology
DX: M05.79 Rheumatoid arthritis with rheumatoid factor of multiple sites without organ or systems involvement (principal); Z79.60 Long term (current) use of unspecified immunomodulators and immunosuppressants
CPT/HCPCS: 99213

== ENCOUNTER → 2023-03-25 08:40 | Outpatient (BNVA) | payer OTHER, SELFPAY | PROVIDERS: PCP Internal Medicine; Visit Provider Internal Medicine Rheumatology | DX: M05.9 Rheumatoid arthritis with rheumatoid factor, unspecified (principal) ==

== ENCOUNTER 2023-06-17 08:34 | Outpatient (AMB) | payer OTHER, SELFPAY ==
[2023-06-17 08:38] VITALS: BP 140/78; PULSE 89; O2SAT 99; BMI 22.9
--- NOTE | 2023-06-17 08:38 | MHC.OFFVIS ---
Intake Vital Signs 06/17/23 08:38 Height 5 ft Weight 117 lb 8.102 oz BMI 22.9 BP 140/78 H Blood Pressure Location Rt brachial Position Sitting Pulse 89 Pulse Source Pulse Oximeter Pulse Oximetry (%) 99 Oxygen Delivery Method Room Air Intake Visit Reasons: ra with dr Carmela Riddle Note: Patient last seen by Dr Hui 03/25/23 presents today for follow up and test results. 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 Accompanied by: Self / Same As Patient Allergies tocilizumab [From Actemra] Allergy (Intermediate, Verified 06/17/23 08:41) Rash sarilumab [From Kevzara] Allergy (Verified 06/17/23 08:41) rash Medication List - Last Reconciled 06/17/23 by Susan Sheikh MD abatacept (Orencia) 125 mg subcut QWEEK clobetasol 0.05% topical diltiazem HCl mg PO estradiol transdermal flecainide 50 mg PO Q12H hydrochlorothiazide 12.5 mg PO DAILY metoprolol succinate ER 50 mg PO DAILY PRN progesterone micronized mg PO HPI HPI Comments History of Present Illness Details 62-year-old female with seropositive erosive RA returns for follow-up. Has been on Orencia for 2 months now. She states that she gets mild injection site reactions in her thighs but a severe then Actemra and Kevzara. She states that she feels Orencia works a little better then lumen but she continues to have morning stiffness of her hands lasting 2-3 hours. She has significant difficulty doing motor activities with her hands such as writing. She would have knee pain with extreme range of motion such as squatting down. Most recent history by Dr. Hui 03/2023 :The patient returns for evaluation of her rheumatoid arthritis. She currently is taking the baricitinib 2 mg daily. She says it has helped somewhat in allowing her to avoid severe pain but she still has some pain with use of the hands - the MCP's and wrists. She notes there is swelling in the wrists and MCPs. This is worse with more physical activity. The knees occasionally are painful with stairs. She said she felt better on the Kevzara and Actemra but they gave her skin rashes and other side effects. She wonders if she should retry Orencia. The chart notes indicate she was only on it for a month or 2. She has not needed any prednisone recently however. There do not appear to be any side effects related to the baricitinib presently. [facility] Medical History Syncope Atrial tachycardia Hypertension Surgical History H/O dilation and curettage H/O arthroscopic knee surgery Family History Father Rectal cancer HTN (hypertension) Mother HTN (hypertension) Social History Alcohol intake: current Patient Tobacco Use Status: Never used Tobacco e-Cigarette/Vaping Use: Never Used Review of Systems Const Denies fever(s) and Denies weight loss Musc Reports arthralgias, Reports joint swelling and Reports stiffness Physical Exam Vital Signs: Last Vital Signs Pulse 89 06/17/23 08:38 BP 140/78 H 06/17/23 08:38 Pulse Ox 99 06/17/23 08:38 Oxygen Delivery Method Room Air 06/17/23 08:38 BMI result Body Mass Index 22.9 Const General: cooperative, healthy appearing and comfortable Nutritional Appearance: average body habitus Orientation/consciousness: patient oriented x3 Limitations: no limitations HEENT Head: Yes normocephalic and Yes atraumatic Mouth: moist mucous membranes Resp Effort & Inspection: normal respiratory effort and able to speak in complete sentences Auscultation: clear to auscultation bilaterally Cardio Rate: regular rate Rhythm: regular rhythm Skin General skin exam: no rashes or lesions noted Neuro General: patient oriented x3 Extrem Other: Osteoarthritic changes of both hands Left wrist swelling and deformity (since a fracture years ago) Few swollen MCPs and PIPs without pain bilaterally No wrist pain with flexion-extension bilaterally No tender joints Bilateral squaring of 1st CMC joints normal range of motion of elbows and shoulders bilaterally Bilateral knee crepitus with flexion and extension Bilateral bunions No MTP tenderness bilaterally Negative MTP squeeze test bilaterally Assessment & Plan Assessment & Plan (1) Seropositive rheumatoid arthritis: Comment: dx 2010. plaquenil, mtx, Enbrel, sulfasalazine, Humira not effective. Xeljanz 06/2019 through 07/2020 headache and nausea Kevzara ordered but denied by insurance company 07/2020 Orencia 08/2020- 09/2020 symptoms improved at first, then returned-also on prednisone weaned off Actemra 09/2020- 04/2021- tremor and feeling unwell, likely due to other reasons, but Actemra to see response. Kevzara 04/2021-05/2021-injection site reaction Actemra- 06/2021- 08/2021- injection site reaction, redness and warmth at the injection site. Olumiant ? start date-03/2023 wanted to try Orencia 1 more time Orencia 03/2023 more effective Code(s): M05.9 - Rheumatoid arthritis with rheumatoid factor, unspecified Plan: This is a 62-year-old female with seropositive erosive RA who presents for follow-up. Used to follow-up with Dr. Hui. This is her 1st visit with me. Doing better on Orencia 125 mg subcutaneously weekly. Continues to have morning stiffness of her hands and pain with activities throughout the day. Patient already has significant damage from her RA. At this point likely majority of her complaints is due to degenerative arthritis. I believe her RA is reasonably well controlled. Patient stated however that she is done much better on Kevzara and Actemra she would have significant injection site bruising in the thighs. She did not inject in the abdomen. Continue with Orencia for 3 more months. We can consider switching to Kevzara or Actemra and advising patient to injecting the abdomen or switched to IV formulation Labs before next visit in 3 months (2) Long-term use of immunosuppressant medication: Code(s): Z79.60 - terminal clerk (current) use of unspecified immunomodulators and immunosuppressants Plan: I spent 30 minutes reviewing patient's chart, evaluating patient, ordering diagnostic workup, counseling patient and documenting in the chart Orders: Orders Complete Blood Count Auto Diff 3 Months M05.9 - Rheumatoid arthritis with rheumatoid factor, unspecified, Z79.60 - detention (current) use of unspecified immunomodulators and immunosuppressants C Reactive Protein 3 Months M05.9 - Rheumatoid arthritis with rheumatoid factor, unspecified, Z79.60 - detention (current) use of unspecified immunomodulators and immunosuppressants Comprehensive Met. Panel 3 Months M05.9 - Rheumatoid arthritis with rheumatoid factor, unspecified, Z79.60 - terminal clerk (current) use of unspecified immunomodulators and immunosuppressants Erythrocyte Sedimentation Rate 3 Months M05.9 - Rheumatoid arthritis with rheumatoid factor, unspecified, Z79.60 - detention (current) use of unspecified immunomodulators and immunosuppressants Coding Level of Care Code Est Pt Level 4 (95022) Diagnoses Seropositive rheumatoid arthritis M05.9 Long-term use of immunosuppressant medication Z79.60
== END 2023-06-17 08:58 | disposition home or self-care (01) ==
PROVIDERS: PCP Internal Medicine; Visit Provider Student in an Organized Health Care Education/Training Program
DX: M05.79 Rheumatoid arthritis with rheumatoid factor of multiple sites without organ or systems involvement (principal); Z79.60 Long term (current) use of unspecified immunomodulators and immunosuppressants
CPT/HCPCS: 99214

== ENCOUNTER → 2023-06-17 08:34 | Outpatient (BNVA) | payer OTHER, SELFPAY | PROVIDERS: PCP Internal Medicine; Visit Provider Student in an Organized Health Care Education/Training Program ==

== ENCOUNTER 2023-11-13 12:39 | Outpatient (AMB) | payer OTHER, SELFPAY ==
[2023-11-13 12:46] VITALS: BP 140/70; PULSE 76; O2SAT 97; BMI 23.3
--- NOTE | 2023-11-13 12:46 | A.OFFVIS_ITS ---
Vital Signs 11/13/23 12:46 Height 5 ft Weight 119 lb 4.321 oz BMI 23.3 BP 140/70 H Blood Pressure Location Rt brachial Position Sitting Pulse 76 Pulse Source Pulse Oximeter Pulse Oximetry (%) 97 Oxygen Delivery Method Room Air Intake Visit Reasons: RA/lm Intake Note: Patient last seen on 06/17/23 present today for follow up and test results. Allergies tocilizumab [From Actemra] Allergy (Intermediate, Verified 11/13/23 12:50) Rash sarilumab [From Kevzara] Allergy (Verified 11/13/23 12:50) rash Medication List - Last Reconciled 11/13/23 by Susan Sheikh MD clobetasol 0.05% topical diltiazem HCl CD mg PO estradiol transdermal flecainide 50 mg PO Q12H hydrochlorothiazide 12.5 mg PO DAILY metoprolol succinate ER 50 mg PO DAILY PRN Orencia (abatacept) 125 mg subcut QWEEK NS progesterone micronized mg PO HPI Comments Details: 63-year-old female with seropositive erosive RA returns for follow-up. Has been on Orencia for approx 7 months now. She states that she is quite well overall. Denies any side effects related to Orencia. Denies any injection site reactions. Denies any recent infections. She states that she continues to have morning stiffness of her hands lasting 1-2 hours, intermittent swelling, rarely she would take ibuprofen. Most recent history by Dr. Hui 03/2023 :The patient returns for evaluation of her rheumatoid arthritis. She currently is taking the baricitinib 2 mg daily. She says it has helped somewhat in allowing her to avoid severe pain but she still has some pain with use of the hands - the MCP's and wrists. She notes there is swelling in the wrists and MCPs. This is worse with more physical activity. The knees occasionally are painful with stairs. She said she felt better on the Kevzara and Actemra but they gave her skin rashes and other side effects. She wonders if she should retry Orencia. The chart notes indicate she was only on it for a month or 2. She has not needed any prednisone recently however. There do not appear to be any side effects related to the baricitinib presently. [facility] Medical History Syncope Atrial tachycardia Hypertension Surgical History H/O dilation and curettage H/O arthroscopic knee surgery Family History Father Rectal cancer HTN (hypertension) Mother HTN (hypertension) Social History Alcohol intake: current Patient Tobacco Use Status: Never used Tobacco e-Cigarette/Vaping Use: Never Used Current occupational status: employed Current occupation: Medical assiatant Review of Systems Const Denies fever(s) and Denies weight loss Musc Reports arthralgias, Reports joint swelling and Reports stiffness Physical Exam Vital Signs: Last Vital Signs Pulse 76 11/13/23 12:46 BP 140/70 H 11/13/23 12:46 Pulse Ox 97 11/13/23 12:46 Oxygen Delivery Method Room Air 11/13/23 12:46 BMI result Body Mass Index 23.3 Const General: cooperative, healthy appearing and comfortable Nutritional Appearance: average body habitus Orientation/consciousness: patient oriented x3 Limitations: no limitations HEENT Head: Yes normocephalic and Yes atraumatic Mouth: moist mucous membranes Resp Effort & Inspection: normal respiratory effort and able to speak in complete sentences Cardio Rate: regular rate Rhythm: regular rhythm Skin General skin exam: no rashes or lesions noted Neuro General: patient oriented x3 Extrem Other: Osteoarthritic changes of both hands Left wrist swelling and deformity (since a fracture years ago) Right 2nd MCP swelling without tenderness Left 2nd and 3rd MCP swelling and tenderness No wrist pain with flexion-extension bilaterally Limited flexion and extension of both wrists No tender joints Bilateral squaring of 1st CMC joints normal range of motion of elbows and shoulders bilaterally Bilateral knee crepitus with flexion and extension Bilateral bunions No MTP tenderness bilaterally Negative MTP squeeze test bilaterally Results Reviewed Results Reviewed: Laboratory Tests 07/05/22 08:30 WBC 9.9 Hgb 13.2 ESR 8 Creatinine 0.66 AST 18 ALT 14 C-Reactive Protein 1.[address] [place] [address] XRay Report Signed Patient: Kae Campbell MR#: [id number] : 1960 Acct:[id number] Age/Sex: 59 / F ADM Date: 03/09/20 Ordering Physician: Haylee Magallanes MD Date of Service: 03/09/20 Procedure(s): XR hand wrist RT Accession Number(s): [id number] cc: Haylee Magallanes MD~ EXAMINATION: BILATERAL FOOT X-RAY CLINICAL INFORMATION: Pain COMPARISON: None TECHNIQUE: 3 views each foot FINDINGS: Right: No fracture or dislocation is seen. There is mild hallux valgus deformity at the first MTP joint. There is joint space narrowing, osteophyte formation and subchondral cyst formation and erosion at the first MTP joint. There there are also small cysts or erosive changes at the third and fifth tarsal head at the MTP joints. There may be cystic or erosive changes along the lateral aspect of the DIP and PIP joints of the fifth toe. Joint spaces are otherwise normal. There is soft tissue swelling adjacent to the first MTP joint. Left: No fracture or dislocation is seen. There is mild hallux valgus deformity at the first MTP joint. There is degenerative change with joint space narrowing and osteophyte formation. There is also cystic or erosive change of the first metatarsal head. There are is cystic or erosive changes at the fifth MTP joint and question IP joints of the fifth toe. There is soft tissue swelling adjacent to the MTP joint. There is a plantar calcaneal spur. XR/XR hand wrist RT IMPRESSION: Right: Erosive arthritis at the first MTP joint, third and fifth MTP joints and question IP joints of the fifth toe. Hallux valgus deformity and mild osteoarthritis of the first MTP joint. Left: Erosive arthritis at the first and fifth MTP joints and question fifth IP joints. Hallux valgus deformity and mild osteoarthritis at the first MTP joint. Plantar calcaneal spur. EXAMINATION: Bilateral hand x-ray CLINICAL INFORMATION: Pain COMPARISON: None. TECHNIQUE: 3 views each hand FINDINGS: Right: No fracture or dislocation is seen. There is mild proliferative arthritis at the IP joints and first CORRECTION with joint space narrowing and osteophyte formation. There is significant cystic change at the radiocarpal joint involving the scaphoid bone and distal radius. There is joint space narrowing of the proximal and distal carpal rows. There is question of some collapse of the proximal carpal row. There is a periarticular osteopenia. There is soft tissue swelling particularly at the wrist and over the metacarpal heads. There is question of erosive change of the dorsal aspect of the second or third metacarpal head seen on the lateral view. Left: There is an old healed fracture of the left radial shaft. No acute fracture or dislocation is seen. There is arthritis at the IP joints with joint space narrowing and osteophyte formation. There is question of cystic or erosive change at the PIP joint of the fifth finger and DIP joint of the second finger. There is significant periarticular soft tissue swelling adjacent to the PIP joint of the second finger. There is a proliferative arthritis at the first CORRECTION joint with joint space narrowing and osteophyte formation. There are a small cysts in the scaphoid bone and ulnar styloid and triquetrum. There is soft tissue swelling adjacent to the ulnar styloid. IMPRESSION: Right: Proliferative arthritis at the IP joints and first CORRECTION joint. Marked cystic change at the radiocarpal joint and marked joint space narrowing of the proximal and distal carpal rows with question clinical some collapse of the proximal carpal row suggestive of erosive arthritis. Left: Arthritis at the IP joints. There is question of erosive arthritis at the PIP joint of the fifth finger and DIP joint of the second finger. There is marked periarticular soft tissue swelling adjacent to the PIP joint of the second finger. Mild proliferative arthritis at the first CORRECTION joint. Small cysts in the carpal bones and soft tissue swelling adjacent to the ulnar styloid. Old left radial shaft fracture. Assessment & Plan Assessment & Plan (1) Seropositive rheumatoid arthritis: Comment: dx 2010. plaquenil, mtx, Enbrel, sulfasalazine, Humira not effective. Xeljanz 06/2019 through 07/2020 headache and nausea Kevzara ordered but denied by insurance company 07/2020 Orencia 08/2020- 09/2020 symptoms improved at first, then returned-also on prednisone weaned off Actemra 09/2020- 04/2021- tremor and feeling unwell, likely due to other reasons, but Actemra to see response. Kevzara 04/2021-05/2021-injection site reaction Actemra- 06/2021- 08/2021- injection site reaction, redness and warmth at the injection site. Olumiant ? start date-03/2023 wanted to try Orencia 1 more time Orencia 03/2023 effective Code(s): M05.9 - Rheumatoid arthritis with rheumatoid factor, unspecified Category: Medical Plan: This is a 63-year-old female with seropositive erosive RA who presents for follow-up. on Orencia 125 mg subcutaneously weekly. Doing fairly well overall. She has 3 swollen joints and a couple of tender joints on exam. Continues to have morning stiffness lasting 1-2 hours. Her inflammatory markers are normal. Patient continues to have low-grade symptoms, we discussed potentially adding Arava. Discussed risks and benefits of adding another medication. At this time. Patient states that she feels quite well overall and does not want to make any change in treatment. I think her disease is well controlled at this stage and we will continue to monitor her Labs before next visit in 6 months (2) Long-term use of immunosuppressant medication: Code(s): Z79.60 - longterm (current) use of unspecified immunomodulators and immunosuppressants Category: Medical Plan: I spent 22 minutes reviewing patient's chart, evaluating patient, ordering diagnostic workup, counseling patient and documenting in the chart Plan I spent 22 minutes reviewing patient's chart, evaluating patient, ordering caitlin gnostic workup, counseling patient and documenting in the chart Orders: Orders Complete Blood Count Auto Diff 6 Months M05.9 - Rheumatoid arthritis with rheumatoid factor, unspecified, Z79.60 - manager intermediate (current) use of unspecified immunomodulators and immunosuppressants Comprehensive Met. Panel 6 Months M05.9 - Rheumatoid arthritis with rheumatoid factor, unspecified, Z79.60 - manager intermediate (current) use of unspecified immunomodulators and immunosuppressants C Reactive Protein 6 Months M05.9 - Rheumatoid arthritis with rheumatoid factor, unspecified, Z79.60 - manager intermediate (current) use of unspecified immunomodulators and immunosuppressants Erythrocyte Sedimentation Rate 6 Months M05.9 - Rheumatoid arthritis with rheumatoid factor, unspecified, Z79.60 - longterm (current) use of unspecified immunomodulators and immunosuppressants Hepatitis A,B,C Profile 6 Months Z11.59 - Encounter for screening for other viral diseases T Spot TB 6 Months Z11.7 - Encounter for testing for latent tuberculosis infection Coding Level of Care Code Est Pt Level 4 (11392) Diagnoses Seropositive rheumatoid arthritis M05.9 Long-term use of immunosuppressant medication Z79.60
== END 2023-11-13 13:16 | disposition home or self-care (01) ==
PROVIDERS: PCP Internal Medicine; Visit Provider Student in an Organized Health Care Education/Training Program
DX: M05.79 Rheumatoid arthritis with rheumatoid factor of multiple sites without organ or systems involvement (principal); Z79.60 Long term (current) use of unspecified immunomodulators and immunosuppressants
CPT/HCPCS: 99213

== ENCOUNTER → 2023-11-13 12:39 | Outpatient (BNVA) | payer OTHER, SELFPAY | PROVIDERS: PCP Internal Medicine; Visit Provider Student in an Organized Health Care Education/Training Program ==

== ENCOUNTER 2025-01-08 07:20 | Outpatient (AMB) | payer OTHER, SELFPAY ==
--- OUTSIDE RECORDS SUMMARY | 2025-01-08 07:23 | XMS_ITS | Clinical Summary ---
Author Organization [address] [place] [address] Address [address] [place] [address] Phone Care Team Providers Care Quilting Machine Helper Name Role Phone Nagi Montesinos MD Primary Care Provider [phone] Allergies Active Allergy Reactions Criticality Noted Date Comments Sarilumab Rash 12/06/2021 Tocilizumab 12/06/2021 Injection site reaction Medications estradioL (ESTRACE) 0.01 % (0.1 mg/gram) vaginal cream Insert 2 g into the vagina 1 (one) time each day. Active abatacept (ORENCIA) 125 mg/mL injection Inject 1 mL (125 mg total) under the skin 1 (one) time. Active chlorthalidone (HYGROTON) 25 mg tablet Take 1 tablet (25 mg total) by mouth 1 (one) time each day. 90 each 3 04/28/2024 Active dilTIAZem CD (CARDIZEM CD) 240 mg 24 hr capsule TAKE 1 CAPSULE BY MOUTH ONCE DAILY 90 capsule 3 06/01/2024 Active flecainide (TAMBOCOR) 50 mg tablet TAKE 1 TABLET BY MOUTH 2 TIMES DAILY. 180 tablet 1 06/01/2024 Active Active Problems Problem Noted Date Diagnosed Date Paroxysmal atrial fibrillation (CMS/HCC V24, CMS /HCC V28) 03/05/2023 Overview (03/11/2024): Last Assessment & Plan: This 62-year-old female has paroxysmal atrial fibrillation and SVT that is well controlled on flecainide and diltiazem. She is very happy with the response and wants to continue with it. We did talk about the potential to perform catheter ablation which is very effective and she would like to continue with a pharmacologic approach. She will continue healthy lifestyle and limitation in alcohol intake. Syncope 12/06/2021 PSVT (paroxysmal supraventri cular tachycardia) ([facility] V24) 12/06/2021 Overview (03/11/2024): Paroxysmal atrial tachycardia. Last Assessment & Plan: This 61-year-old female with a history of supraventricular tachycardia and possible paroxysmal atrial tachycardia now is maintaining sinus rhythm and tolerating flecainide and diltiazem well. I reviewed with her the options which include continued pharmacologic suppression of arrhythmia, repeat EP study with catheter ablation or an alternative antiarrhythmic agent and we will continue with flecainide and diltiazem given they are working well and having minimal adverse effects. I asked her to continue her healthy lifestyle, limit alcohol intake and continue to treat her blood pressure and monitor it judiciously. She is a relatively low risk patient from a stroke standpoint and we do not have documented atrial fibrillation so it seems reasonable to continue without an anticoagulant. Assessment & Plan (04/28/2024 9:56 AM EST): Maintaining sinus rhythm on flecainide and diltiazem with no adverse effects and normal baseline ECG and no evidence of underlying coronary disease. Reviewed the options of maintaining antiarrhythmic drug therapy, cardiac ablation or alternative antiarrhythmic and we will continue with current medications given excellent response and good tolerance. Essential hypertension 12/06/2021 Overview (03/11/2024): Primary hypertension Last Assessment & Plan: Kae has markedly elevated blood pressure in the office today but this appears to be whitecoat hypertension as she has multiple readings in very detailed log from home that show the vast majority of her blood pressure is in the normal range. She will continue with hydrochlorothiazide and a low-sodium diet. I suggest that she might consider going to chlorthalidone given it is more effective as an antihypertensive agent. She will continue to keep her blood pressure log and if the majority of readings are elevated we will contact me to make the change. Assessment & Plan (04/28/2024 9:57 AM EST): Elevated systolic blood pressure. I discussed the current guidelines would suggest target of 120 mmHg systolic blood pressure and we agreed to transition from hydrochlorothiazide 12.5 mg daily to chlorthalidone 25 mg daily. Her resting heart rate would allow an increase in diltiazem if needed and I stressed the need for a low-sodium diet and regular exercise. Surgical History Surgery Date Site/Laterality Comments KNEE SURGERY PROCEDURE: HISTORICAL KNEE SURGERY OTHER SURGICAL HISTORY PROCEDURE: GA DILATION & CURETTAGE DX&/THER NONOBSTETRIC Family History Medical History Relation Name Comments Hypertension Father Other: CA Rectal Father Hypertension Mother Relation Name Status Comments Father Mother Social History Tobacco Use Types Packs/Day Years Used Date Smoking Tobacco: Never Smokeless Tobacco: Never Alcohol Use Standard Drinks/Week Comments Yes 0 (1 standard drink = 0.6 oz pur e alcohol) Comments Unknown Sex and Gender Information Value Date Recorded Sex Assigned at Not on file Legal Sex Female 7:55 PM EST Gender Identity Not on file Sexual Orientation Not on file Obstetrics History Last Filed Vital Signs Vital Sign Reading Time Taken Comments Blood Pressure 142/84 04/28/2024 9:32 AM EST Pulse 65 04/28/2024 9:32 AM EST Temperature - - Respiratory Rate - - Oxygen Saturation 99% 04/28/2024 9:32 AM EST Inhaled Oxygen Concentration - - Weight 54 kg (119 lb) 04/28/2024 9:32 AM EST Height 157.5 cm (5' 2 ) 04/28/2024 9:32 AM EST Body Mass Index 21.77 04/28/2024 9:32 AM EST Plan of Treatment Health Maintenance Due Date Last Done Comments Breast Cancer Screening 1960 DTaP,Tdap,and Td Vaccines (1 - Tdap) 1980 Cervical Cancer Screening: P ap Smear 1982 Pneumococcal Vaccine: 50+ Ye ars (1 of 1 - PCV) 10/31/2011 Zoster Vaccines (1 of 2) 10/31/2011 COVID-19 Vaccine (2 - Jansse n risk series) 12/19/2020 11/21/2020 Cholesterol Screening (Lipid Panel) 03/24/2022 Colorectal Cancer Screening: Colonoscopy 03/24/2022 HIV Screening 03/24/2022 Hepatitis C Screening 03/24/2022 Social Influencers of Health Screening 03/24/2022 Hypertension/CHF/CAD Annual BMP Blood Test 04/01/2022 Depression Screening 04/22/2024 Influenza Vaccine (#1) 2024 RSV Immunization Adult Patie nts (1 - 1-dose 75+ series) 2036 HIB Vaccines Aged Out No longer eligi ble based on patient's age to complete this topic HPV Vaccines Aged Out No longer eligi ble based on patient's age to complete this topic Hepatitis A Vaccines Aged Out No long er eligible based on patient's age to complete this topic Hepatitis B Vaccines Aged Out No long er eligible based on patient's age to complete this topic IPV Vaccines Aged Out No longer eligi ble based on patient's age to complete this topic MMR Vaccines Aged Out No longer eligi ble based on patient's age to complete this topic Meningococcal ACWY Vaccine Aged Out N o longer eligible based on patient's age to complete this topic Meningococcal B Vaccine Aged Out No l onger eligible based on patient's age to complete this topic RSV Immunization Patients Un octavio 20 months Aged Out No longer eligible b ased on patient's age to complete this topic Varicella Vaccines Aged Out No longer eligible based on patient's age to complete this topic Insurance [facility] [address] [place] [address] Care Teams Quilting Machine Helper Relationship Specialty Start Date End Date Nagi Montesinos MD [address] [place] [address] PCP - General Internal Medicine 04/28/24
--- OUTSIDE RECORDS SUMMARY | 2025-01-08 07:23 | XMS_ITS | Clinical Summary ---
Author Organization [facility] Address [address] [place] [address] Phone Care Team Providers Care Lead Nitrate Processor Name Role Phone Nagi Montesinos MD Primary Care Provider [phone] Allergies No known active allergies Medications YUVAFEM [address] 10 mcg vaginally 2 (two) times a week. 03/13/20 21 Active metoprolol tartrate (LOPRESSOR) 25 MG tablet TAKE 1 TABLET BY MOUTH NEEDED FOR SVT RECURRENCE. 20 tablet 3 05/05/19 22 Active dilTIAZem (CARDIZEM CD) 240 MG 24 hr capsuleIndications:P aroxysmal supraventricular tachycardia,Essentia l hypertension TAKE 1 CAPSULE BY MOUTH EVERY DAY 90 capsule 3 09/26/19 22 Active flecainide (TAMBOCOR) 50 MG tabletIndications:Pa roxysmal supraventricular tachycardia TAKE 1 TABLET BY MOUTH TWICE A DAY 180 tablet 3 11/30/19 22 Active hydroCHLOROthiazide (MICROZIDE) 12.5 mg capsule TAKE 1 CAPSULE BY MOUTH EVERY DAY 90 capsule 3 03/01/20 22 Active Active Problems Problem Noted Date Diagnosed Date Essential hypertension 10/21/2019 Paroxysmal supraventricular tachycardia 04/13/20 19 Encounters Date Type Department Care Team Description 11/02/2024 Telephone [facility] [address] [address] Emmy Hernandez MD Medication Refill from Last 3 Months Social History Tobacco Use Types Packs/Day Years Used Date Smoking Tobacco: Never Smokeless Tobacco: Never Alcohol Use Standard Drinks/Week Comments Yes 0 (1 standard drink = 0.6 oz pur e alcohol) Education Answer Date Recorded Are you interested in more education? Not on colin e 08/17/2022 Are you concerned about learning? Not on file 08/17/2022 No 08/17/2022 No 08/17/2022 Digital Access Answer Date Recorded No 09/17/2022 No 09/17/2022 No 09/17/2022 Reliable internet access at home? Not on file 09/17/2022 Device with a working camera? Not on file Comments Unknown Sex and Gender Information Value Date Recorded Sex Assigned at Not on file Legal Sex Female 9:45 PM EDT Gender Identity Not on file Sexual Orientation Not on file Last Filed Vital Signs Vital Sign Reading Time Taken Comments Blood Pressure 136/80 05/04/2021 2:23 PM EST Pulse 78 05/04/2021 2:23 PM EST Temperature - - Respiratory Rate - - Oxygen Saturation 98% 05/04/2021 2:23 PM EST Inhaled Oxygen Concentration - - Weight 51.7 kg (114 lb) 05/04/2021 2:23 PM EST Height 152 cm (4' 11.84 ) 05/04/2021 2:23 PM EST Body Mass Index 22.38 05/04/2021 2:23 PM EST Plan of Treatment Health Maintenance Due Date Last Done Comments Adult Td,Tdap Booster 1960 BLOOD PRESSURE 1960 LIPID PANEL 1961 POTASSIUM LEVEL 1961 DEPRESSION SCREENING 1973 HEPATITIS C SCREENING 10/31/1979 HIV ONE-TIME SCREENING (18-6 5 YEARS) 10/31/1979 PAP SMEAR 1982 MAMMOGRAM 2001 COLOGUARD 2006 COLONOSCOPY 2006 COLORECTAL CANCER SCREENING 2006 FIT TEST 2006 FOBT 2006 SIGMOIDOSCOPY 2006 VIRTUAL COLONOSCOPY 2006 PNEUMOCOCCAL VACCINES (50+ y ears) (1 of 1 - PCV) 10/31/2011 ZOSTER VACCINES (1 of 2) 10/31/2011 RSV VACCINE (1 - Risk 60-74 years 1-dose series) 2021 INFLUENZA VACCINE (#1) 2024 COVID-19 VACCINE (2 - 2024-2 6 season) 2024 11/21/2020 SMOKING STATUS SCREENING (On ce After 26 Yrs) Completed 05/04/2021 HEPATITIS A VACCINES Aged Out No long er eligible based on patient's age to complete this topic HIB VACCINES Aged Out No longer eligi ble based on patient's age to complete this topic MENINGOCOCCAL VACCINES (ACWY) Aged Out No longer eligible based on patient's age to complete this topic MENINGOCOCCAL VACCINES (B) Aged Out N o longer eligible based on patient's age to complete this topic Medical Devices Not on file Insurance O O O O O O O O O Care Teams Lead Nitrate Processor Relationship Specialty Start Date End Date Nagi Montesinos MD [address] [place] [address] PCP - General Internal Medicine 04/13/19 Additional Source Comments The information contained in this document represents components of the legal health record. It is not the complete legal health record.[facility]
--- NOTE | 2025-01-08 07:32 | A.OFFVIS_ITS ---
Vital Signs 01/08/25 07:37 Height 5 ft Weight 118 lb 4 oz BMI 23.1 BP 152/90 H Blood Pressure Location Lt brachial Position Sitting Pulse 82 Pulse Source Pulse Oximeter Pulse Oximetry (%) 100 Oxygen Delivery Method Room Air Intake Visit Reasons: RA Intake Note: Patient presents for RA follow up. Allergies tocilizumab (From Actemra) Allergy (Intermediate, Verified 01/08/25 07:35) Rash sarilumab (From Kevzara) Allergy (Verified 01/08/25 07:35) rash Medication List - Last Reconciled 01/08/25 by Emerald Hazel MD clobetasol 0.05% topical diltiazem HCl CD mg PO estradiol transdermal flecainide 50 mg PO Q12H metoprolol succinate ER 50 mg PO DAILY PRN Orencia (abatacept) 125 mg subcut QWEEK NS HPI Comments Details: Patient is a 64 y.o. female with paroxysmal atrial tachycardia, hypertension, and seropositive erosive rheumatoid arthritis here today for follow up Interval History: Patient last seen 11/13/[address] Sheikh - On Orencia 125mg SC every week - Has been on Orencia for approx 7 months now. She states that she is quite well overall. Denies any side effects related to Orencia. Denies any injection site reactions. Denies any recent infections. - She states that she continues to have morning stiffness of her hands lasting 1-2 hours, intermittent swelling, rarely she would take ibuprofen. Today - On Orencia 125mg SC every week - Followed up with podiatry and had XRs done which showed erosions - Does not feel that the Orencia is helpful - Still with prolonged AM stiffness, swelling to her hands and feet pain Rheumatologic History: RA - Feet erosions dx 2010. plaquenil, mtx, Enbrel, sulfasalazine, Humira not effective. Xeljanz 06/2019 through 07/2020 headache and nausea Kevzara ordered but denied by insurance company 07/2020 Orencia 08/2020- 09/2020 symptoms improved at first, then returned-also on prednisone weaned off Actemra 09/2020- 04/2021- tremor and feeling unwell, likely due to other reasons, but Actemra to see response. Kevzara 04/2021-05/2021-injection site reaction Actemra- 06/2021- 08/2021- injection site reaction, redness and warmth at the injection site. Olumiant ? start date-03/2023 wanted to try Orencia 1 more time Orencia 03/2023 effective Current Rheumatology Medication(s): Orencia 125mg SC every week PFSH Medical History Syncope Atrial tachycardia Hypertension Surgical History H/O dilation and curettage H/O arthroscopic knee surgery Family History Father Rectal cancer HTN (hypertension) Mother HTN (hypertension) Social History Alcohol intake: current Patient Tobacco Use Status: Never used Tobacco e-Cigarette/Vaping Use: Never Used Current occupational status: employed Current occupation: Medical assiatant Review of Systems Const Details: Review of Systems Constitutional: Denies fever, chills, weight loss ENT: Denies vision changes, eye pain or eye redness, dental caries, dry mouth GI: Denies nausea, vomiting, diarrhea, abdominal pain, change in BM Pulm: Denies SOB, SWANN, hemoptysis, wheezing Cards: Denies chest pain, palpitations Skin: Denies Raynaud's, rash, nail changes, photosensitivity, H[employer]: Denies headaches, weakness, paresthesias, recurrent falls MSK: as per HPI All other systems reviewed and are unremarkable except noted above Physical Exam Exam Exam: Vital signs reviewed Physical Examination CONSTITUITIONAL Patient alert and cooperative. Well appearing and in no apparent painful distress MSK Hands * Right Hand: Able to make a fist. Scattered TTP of the MCPs and PIPs. No swelling * Left Hand: Able to make a fist. Scattered TTP of the MCPs and PIPs. No swelling * Herbedens nodes noted bilaterally Wrists * Right Wrist: Full ROM to flexion and extension. No swelling or TTP * Left Wrist: Full ROM to flexion and extension. No swelling or TTP Elbows * Right Elbow: Full ROM. No swelling or TTP. No TTP of the medial epicondyle. No TTP of the lateral epicondyle * Left Elbow: Full ROM. No swelling or TTP. No TTP of the medial epicondyle. No TTP of the lateral epicondyle Shoulders * Right shoulder: Full ROM. No swelling noted. No TTP of the AC joint. No TTP of the subacromial bursa. No TTP of the posterior shoulder * Left shoulder: Full ROM. No swelling noted. No TTP of the AC joint. No TTP of the subacromial bursa. No TTP of the posterior shoulder Knees * Right knee: Full ROM. No swelling noted. No TTP of the knee joint line. No TTP of pes anserine bursa * Left knee: Full ROM. No swelling noted. No TTP of the knee joint line. No TTP of pes anserine bursa. Ankles * Right ankle: Good ankle dorsiflexion and plantar flexion. No swelling. No TTP of the ankle joint * Left ankle: Good ankle dorsiflexion and plantar flexion. No swelling. No TTP of the ankle joint Feet * Right foot: Bunions. Positive squeeze test * Left foot: Bunions. Positive squeeze test Tender points? * No tenderness to palpation of the bilateral trapezius, supraspinatus, anterior costochondral junctions, bilateral suboccipital muscle insertions SKIN No rashes Vital Signs: Last Vital Signs Pulse 82 01/08/25 07:37 BP 152/90 H 01/08/25 07:37 Pulse Ox 100 01/08/25 07:37 Oxygen Delivery Method Room Air 01/08/25 07:37 BMI result Body Mass Index 23.1 Results Reviewed Results Reviewed: 10/16/24 [facility] WBC 8.5 Hb 13.1 Plt 271 BUN 20 Cr 0.57 eGFR 103 AST 21 ALT 14 ESR 3 CRP <1 Hep B NR Hep C NR XR Bilateral Feet 02/2020 FINDINGS: Right: No fracture or dislocation is seen. There is mild hallux valgus deformity at the first MTP joint. There is joint space narrowing, osteophyte formation and subchondral cyst formation and erosion at the first MTP joint. There there are also small cysts or erosive changes at the third and fifth tarsal head at the MTP joints. There may be cystic or erosive changes along the lateral aspect of the DIP and PIP joints of the fifth toe. Joint spaces are otherwise normal. There is soft tissue swelling adjacent to the first MTP joint. Left: No fracture or dislocation is seen. There is mild hallux valgus deformity at the first MTP joint. There is degenerative change with joint space narrowing and osteophyte formation. There is also cystic or erosive change of the first metatarsal head. There are is cystic or erosive changes at the fifth MTP joint and question IP joints of the fifth toe. There is soft tissue swelling adjacent to the MTP joint. There is a plantar calcaneal spur. IMPRESSION: Right: Erosive arthritis at the first MTP joint, third and fifth MTP joints and question IP joints of the fifth toe. Hallux valgus deformity and mild osteoarthritis of the first MTP joint. Left: Erosive arthritis at the first and fifth MTP joints and question fifth IP joints. Hallux valgus deformity and mild osteoarthritis at the first MTP joint. Plantar calcaneal spur. Assessment & Plan Assessment & Plan (1) Seropositive rheumatoid arthritis: Comment: dx 2010. plaquenil, mtx, Enbrel, sulfasalazine, Humira not effective. Xeljanz 06/2019 through 07/2020 headache and nausea Kevza ordered but denied by insurance company 07/2020 Orencia 08/2020- 09/2020 symptoms improved at first, then returned-also on prednisone weaned off Actemra 09/2020- 04/2021- tremor and feeling unwell, likely due to other reasons, but Actemra to see response. Kevzara 04/2021-05/2021-injection site reaction Actemra- 06/2021- 08/2021- injection site reaction, redness and warmth at the injection site. Olumiant ? start date-03/2023 wanted to try Orencia 1 more time Orencia 03/2023 - 12/2024, no longer effective Code(s): M05.9 - Rheumatoid arthritis with rheumatoid factor, unspecified Category: Medical Plan: #Seropositive Erosive RA Patient is a 64-year-old female with seropositive erosive (feet erosions) rheumatoid arthritis here for follow up. On Orencia for the past 2 years but continues to complain of joint pain and prolonged morning stiffness. Has some scattered synovitis on examination today. 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 and immunosuppressants Plan: #Long-term Use of ANNY inhibitors: Xeljanz (Tofacitinib)/ Rinvoq (Upadacitinib)/ Olumiant (Baricitinib) Discussed with patient the benefits and risks of ANNY inhibitors for the management of the rheumatic condition Benefits include reduce pain, maintenance of remission and reduction of flares Risks include thromboembolic events, skin cancer and nonmelanoma skin cancers, other forms of cancer, cardiovascular alcohol and mortality Advise patient that they are to hold the medication and for up to 1 week after a febrile illness or an open skin wound Plan This is my first time seeing this patient. I spent 43 minutes reviewing the record and labs, taking a history, examining the patient, discussing the treatment plan, ordering diagnostic work up and documenting in the medical record Orders: Orders C Reactive Protein 4 Months Z79.899 - Other nursing home (current) drug therapy Erythrocyte Sedimentation Rate 4 Months Z79.899 - Other long distance operator (current) drug therapy Complete Blood Count Auto Diff Today Z79.899 - Other long distance operator (current) drug therapy C Reactive Protein Today Z79.899 - Other long distance operator (current) drug therapy Complete Blood Count Auto Diff 4 Months Z79.899 - Other long distance operator (current) drug therapy Comprehensive Met. Panel 4 Months Z79.899 - Other nursing home (current) drug therapy Comprehensive Met. Panel Today Z79.899 - Other long distance operator (current) drug therapy Erythrocyte Sedimentation Rate Today Z79.899 - Other long distance operator (current) drug therapy Medications: Discontinued Orencia (abatacept) Discontinued Reason: Doctor's Order 125 mg subcut QWEEK 4 mL 4RF NS M05.9 - Rheumatoid arthritis with rheumatoid factor, unspecified Coding Level of Care Code Est Pt Level 5 (30104) Complex EM visit Add On G2211 Diagnoses Seropositive rheumatoid arthritis M05.9 Long-term current use of upadacitinib Z79.69
[2025-01-08 07:37] VITALS: BP 152/90; PULSE 82; O2SAT 100; BMI 23.1
== END 2025-01-08 08:14 | disposition home or self-care (01) ==
LOC: HO.RHES 07:21
PROVIDERS: PCP Internal Medicine; Visit Provider Student in an Organized Health Care Education/Training Program
DX: M05.79 Rheumatoid arthritis with rheumatoid factor of multiple sites without organ or systems involvement (principal); Z79.69 Long term (current) use of other immunomodulators and immunosuppressants
CPT/HCPCS: 99215; G2211